=== PATIENT | male | born 1985 | race Caucasian/White ===

== ENCOUNTER 2019-05-16 06:21 | Emergency (ER) | payer SELFPAY ==
[~2019-05-16] VITALS: Ht 165.1 cm; Wt 76.7 kg
[2019-05-16 06:23] VITALS: BP 130/90
--- NOTE | 2019-05-16 06:26 | NUR ---
TO LOBBY A/W BED AMBULATORY
--- NOTE | 2019-05-16 07:10 | NUR ---
TO BED # 07 AMBULATORY
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
[2019-05-16] MEDS ORDERED: KETOROLAC 60 MG/2 ML VIAL IM ONE (07:35)
--- NOTE | 2019-05-16 07:51 | NUR ---
Note ignacio in EDM - 05/16/19 at 0752 by [facility] Patient discharged with v/s stable. Written and verbal after care instructions given and explained. Patient alert, oriented and verbalized understanding of instructions. Ambulatory with steady gait. All questions addressed prior to discharge. ID band removed. Patient advised to follow up with PMD. Rx of NAPROSYN & PENICILLIN given. Patient educated on indication of medication including possible reaction and side effects. Opportunity to ask questions provided and answered.
[2019-05-16 07:57] VITALS: BP 121/78
== END 2019-05-16 07:57 | disposition home or self-care (01) ==
LOC: MED 06:21
DX: M75.22 Bicipital tendinitis, left shoulder (principal)
CPT/HCPCS: 96372; 99283; J1885

== ENCOUNTER 2021-07-04 02:30 | Emergency (ER) | payer MEDICAID ==
[~2021-07-04] VITALS: Ht 167.6 cm; Wt 76.2 kg
[2021-07-04] MEDS ORDERED: TETRACAINE HCL/PF 0.5% OPTH 4 ML BTL OP ONE (02:35)
[2021-07-04] MEDS ORDERED: FLUORESCEIN OPTH STRIP 1 MG OP ONE (02:35)
[2021-07-04 02:37] VITALS: BP 133/69
--- NOTE | 2021-07-04 02:48 | NUR ---
patient to CT via w/c
--- NOTE | 2021-07-04 03:09 | NUR ---
PT AMBULATED TO [facility] W STEADY GAIT.
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
[2021-07-04] MEDS ORDERED: LIDOCAINE/EPI 1% 1:100000 20 ML VIAL INJ ONE (03:20)
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
--- NOTE | 2021-07-04 03:53 | NUR ---
IRENE FROM [facility] CALLED TO CONTINUE PT REPORT. NO REPORT # AT THIS TIME, PER IRENE WILL COME TO HOSPITAL FOR THE REPORT.
[2021-07-04 04:14] VITALS: BP 133/69
--- NOTE | 2021-07-04 04:14 | NUR ---
Patient does not wish to proceed with medical care recommended by . Patient given information related to possible complications, up to and including , which could occur as a result of leaving hospital at this time BY . Patient verbalizes understanding of risks involved leaving against medical advice. Patient has signed AMA form. PT WAS ALSO PROVIDED W DISCHARGE INSTRUCTIONS BY .
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
--- NOTE | 2021-07-04 06:00 | NUR ---
NURSE FROM [facility] CALLED ASKING TO VERIFY IF PATIENT WAS PREVIOUSLY SEEN AT [place]. REPLIED AFFIRMATIVELY, STATING WE WERE LOOKING FOR TRANSFER BEFORE PATIENT SIGNED OUT AMA, NO CD OF SCANS GIVEN BEFORE PT LEFT FACILITY. ALSO INFORMED NURSE THAT [facility] [employer] CAME AFTER PT LEFT LOOKING TO INTERVIEW ON INCIDENT.
== END 2021-07-04 04:14 | disposition left against medical advice (07) ==
LOC: MED 02:30
DX: S01.412A Laceration without foreign body of left cheek and temporomandibular area, initial encounter (principal); Y04.0XXA Assault by unarmed brawl or fight, initial encounter; Y93.89 Activity, other specified; Y92.89 Other specified places as the place of occurrence of the external cause; Y99.8 Other external cause status
CPT/HCPCS: 12011; 70450; 70486; 99284; J2001